=== PATIENT | female | born 1980 | race Two or more races ===

== ENCOUNTER → 2025-01-28 | Emergency (ER) | payer OTHER ==
[~2025-01-28] VITALS: Ht 165.1 cm; Wt 59.0 kg
[~2025-01-28] MED LIST: 0.9 % SODIUM CHLORIDE 1,000 ML IV SCH; ONDANSETRON HCL 2 MG/ML VIAL IV ONE; PROMETHAZINE HCL 25 MG/ML AMPUL IM ONE
[2025-01-28 18:37] VITALS: BP 107/71; O2SAT 100
[2025-01-28 20:17] LABS: BASO % 0.4 % (0.1-1.2); EOS # 0.10 (0.04-0.54); EOS % 0.5 % (0.7-7.0); LYMPH # 1.46 (1.18-3.74); LYMPH % 7.2 % (19.3-53.1); MEAN PLATELET VOLUME 11.20 fl (9.4-12.4); MONO # 1.57 (0.24-0.82); MONO % 7.8 % (4.7-12.5); NEUT # 16.84 (1.56-6.13); NEUT % 83.5 % (34.0-71.1); RED CELL DISTRIBUTION WIDTH 13.3 % (11.6-14.4)
[2025-01-28 21:54] LABS: BUN CREA RATIO 28.0 (7.0-25.0); CREATININE SERUM 0.75 mg/dL (0.55-1.02); GFR 83.56; GLUCOSE FASTING 92.0 mg/dL (65-100); OSMOLALITY SERUM 288.0 MOSM/KG (275-295)
[2025-01-28 23:08] LABS: URINE APPEARANCE Clear; URINE BILIRRUBIN Negative (NEGATIVE); URINE BLOOD Negative; URINE COLOR Dark Yellow; URINE GLUCOSE Negative (NEGATIVE); URINE LEUKOCYTE Trace; URINE NITRATE Negative; URINE PROTEIN Trace (NEGATIVE); URINE UROBILINOGEN 0.2 E.U./dl
[2025-01-28 23:12] LABS: URINE BACTERIA 437.9 uL (0.0-1933); URINE CAST 2.34 uL (0.0-1.40); URINE EPITHELIAL CELLS 46.1 uL (0.0-38.8); URINE RBC 6.5 uL (0.0-20.8); URINE WBC 13.0 uL (0.0-23.2)
[2025-01-28 23:29] LABS: URINE KETONE 40 (NEGATIVE)
[2025-01-28 23:31] LABS: URINE MUCUS MODERATE
== END | disposition home or self-care (01) ==
LOC: ER 18:34
PROVIDERS: General Practice
DX: R11.10 Vomiting, unspecified (principal); E86.0 Dehydration; Z88.0 Allergy status to penicillin